=== PATIENT | male | born 1965 | race Caucasian/White ===

== ENCOUNTER 2020-11-01 01:51 | Emergency (ER) | payer OTHER, SELFPAY ==
[2020-11-01 02:04] VITALS: BP 166/80; PULSE 96; O2SAT 99
[2020-11-01 02:06] VITALS: BP 166/80; PULSE 96; RESP 17; TEMP 37.1; O2SAT 99; BMI 21.7
--- NOTE | 2020-11-01 02:09 | ED.EXTPRO ---
HPI - Extremity Problem General Chief complaint: Extremity Problem,Nontraumatic Stated complaint: redness/pain going up both legs Time Seen by Provider: 11/01/20 02:01 Source: patient Mode of arrival: Wheelchair Limitations: no limitations History of Present Illness HPI Narrative: 54-year-old gentleman with no reported medical history but does not frequent physicians presents with increasing lower extremity pain left greater than right getting worse over the course of the evening. Notes that he was mowing the lawn in his boot was rubbing on the medial aspect of his left calf became slightly red after that and over the course of the evening the redness has spread up the medial aspect of the knee to the posterior thigh. He describes no fevers, cough, chest pain, vomiting, diarrhea. No dizziness or near syncopal episodes no headache. He states he had some antibiotics and took 2 doses today. Does report intermittent use of both heroin and methamphetamine. Related Data Previous Rx's Medication Instructions Recorded clindamycin HCl 300 mg PO TID #30 cap 11/01/20 sulfamethoxazole-trimethoprim 1 tab PO BID #20 tab 11/01/20 [Bactrim DS] Allergies Allergy/AdvReac Type Severity Reaction Status Date / Time Penicillins Allergy Verified 11/01/20 02:08 Review of Systems Review of Systems Narrative: Remainder of complete review of systems is otherwise unremarkable except for that included in the HPI. Patient History Social History Smoking Status: Current every day smoker Smoking Status: Current every day smoker Substance Use Type: marijuana Exam Narrative Exam Narrative: General: Disheveled and in a moderate amount of pain from the left leg. Able to give a complete history. Well-nourished well-developed HEENT: Moist mucous membranes, normal sclera with reactive pupils, Respiratory: Lungs are clear to auscultation, no wheezing no rales no rhonchi. Full and symmetrical air movement Cardiac: Regular rate and rhythm, 2/6 systolic murmur with careful auscultation. No bruits Abdomen: Soft, nontender, good bowel tones, no flank pain. No inguinal adenopathy Skin: Left lower extremity with warmth and redness with a clearly demarcated edge in the medial aspect of the knee extending to the distal thigh on the left side. Mild edema to the left calf. He also has some mild erythema the distal oneal on the right side without similar calf swelling or proximal obvious demarcation of erythema Neurologic: Grossly neurologically intact with no obvious asymmetries or abnormalities Extremities: No trauma, well perfused Psych: Fluent speech, poor insight Initial Vital Signs Initial Vital Signs: Vital Signs Pulse Rate 96 H 11/01/20 02:04 Blood Pressure 166/80 H 11/01/20 02:04 Pulse Oximetry 99 11/01/20 02:04 Course Orders Ordered: ED Orders 11/01/20 02:45 Blood Culture Stat Complete Blood Count AUTO DIFF Stat Comprehensive Metabolic Panel Stat Lactate (Lactic Acid) Stat Discontinued Medications Clindamycin HCl (Clindamycin 150 Mg Capsule) 300 mg PO NOW ONE Stop: 11/01/20 03:20 Sodium Chloride (Normal Saline 0.9%) 1,000 mls @ 1,000 mls/hr IV BOLUS ONE Stop: 11/01/20 03:07 Last Admin: 11/01/20 03:08 Dose: 1,000 mls/hr Documented by: ARLIN Ceftriaxone Sodium/Dextrose (Rocephin) 2 gm in 50 mls @ 100 mls/hr IV NOW ONE Stop: 11/01/20 02:37 Last Admin: 11/01/20 03:08 Dose: 100 mls/hr Documented by: ARLIN Oxycodone/Acetaminophen (Oxycodone/Acetaminophen 5/325 Tablet) 2 tab PO NOW ONE Stop: 11/01/20 03:20 Trimethoprim/Sulfamethoxazole (Trimeth/Sulfa 160/800 (Ds) Tablet) 1 tab PO NOW ONE Stop: 11/01/20 03:20 Vital Signs Vital signs: Vital Signs - 8 hr 11/01/20 02:04 11/01/20 02:06 11/01/20 02:30 Temperature 98.8 F Pulse Rate 96 H 96 H 88 Respiratory Rate 17 Blood Pressure 166/80 H 166/80 H 128/67 Pulse Oximetry 99 99 97 MDM - Extremity (Nontraumatic) Lab Data Attestation: I reviewed the patient's lab results. Result diagrams: 11/01/20 02:45 11/01/20 02:45 Labs: Lab Results 11/01/20 11/01/20 11/01/20 Range/Units 02:45 02:45 02:45 WBC 10.1 (4.5-11.0) X10^3/uL RBC 4.28 L (4.5-5.9) X10^6/uL Hgb 13.0 L (13.5-17.5) g/dL Hct 37.7 L (41-53) % MCV 88.0 (80-100) fL MCH 30.4 (26-34) PG MCHC 34.6 (30-36) % RDW 13.5 (11.6-14.8) % Plt Count 227 (150-400) X10^3/uL Neut % (Auto) 65.2 (50-75) % Lymph % (Auto) 19.7 L (25-40) % [place] % (Auto) 12.3 (3-14) % Eos % (Auto) 2.2 (2-4) % Baso % (Auto) 0.6 (0-2) % Neut # (Auto) 6600 (4849-7389) /uL Lymph # (Auto) 2000 (2217-8900) /uL [place] # (Auto) 1200 H (0-900) /uL Eos # (Auto) 200 (0-450) /uL Baso # (Auto) 100 (0-100) /uL Sodium 134 L (137-145) mmol/L Potassium 3.7 (3.4-5.1) mmol/L Chloride 99 (98-107) mmol/L Carbon Dioxide 31 (22-32) mmol/L BUN 15 (9-20) mg/dL Creatinine 0.47 L (0.66-1.25) mg/dL Estimated GFR > 60.0 (>60) mL/min BUN/Creatinine Ratio 31.9 H (6-22) Glucose 178 H (70-100) mg/dL Lactate 1.1 (0.7-2.1) mmol/L Calcium 8.8 (8.4-10.2) mg/dL Total Bilirubin 0.7 (0.2-1.3) mg/dL AST 77 H (17-59) IU/L ALT 176 H (<50) IU/L Alkaline Phosphatase 85 (38-126) U/L Total Protein 7.0 (6.3-8.2) g/dL Albumin 3.3 L (3.5-5.0) g/dL Globulin 3.7 (1.7-4.1) g/dL Albumin/Globulin Ratio 0.9 L (1.0-2.8) Urine Dip Bedside Urine Glucose Negative Bedside Urine Bilirubin + 1 Bedside Urine Ketone +/- 5 Urine Specific [place] 1.030 Bedside Urine Occult Blood - Negative Bedside Urine pH 6.0 Bedside Urine Protein +/- 15 Bedside Urine Urobilinogen 2+ 4mg Bedside Urine Nitrite - Negative Bedside Urine Leukocytes +/- 15 Esterase MDM Narrative Medical decision making narrative: 54-year-old gentleman presents with left leg pain and cellulitis from the mid calf extending to the distal thigh. He declines a 2nd blood culture drawn. Initial IV line is arterial and he declines 2nd try for IV antibiotics. Lab work does return with mildly elevated transaminases and glucose suggesting probable hepatitis in likely diabetes. Creatinine is reassuring. He has no significant white blood cell elevation and his lactic acid is unremarkable. At this point, he has a lower extremity cellulitis without evidence of sepsis, abscess or DVT. As he is declining IV or IM antibiotics to start will opt to double cover him with both Bactrim and clindamycin with 1st dose is given today. Will talk to him about elevating the leg, using ibuprofen and Tylenol. He is given 2 Percocet for pain control here in the emergency department but I am reluctant to give additional narcotics knowing that he is still regularly using heroin. At this point he is safe for home discharge Discharge Plan Departure Patient Disposition: Home Clinical Impression: Cellulitis Qualifiers: Site of cellulitis: extremity Site of cellulitis of extremity: lower extremity Laterality: left Qualified Code(s): L03.116 - Cellulitis of left lower limb Instructions: DI for Cellulitis -- Adult Activity Restrictions/Additional Instructions: Thank you for coming in today Your developing skin infection on the inside of your calf extending up to the inside of the thigh. You do need a full 10 day course of antibiotics. You are high risk for MRSA so I am going to opt for 2 antibiotics to be used together. It is important that you take all of the medication to avoid resistance and increased difficulty in treating this if it does come back. Keeping the foot and leg elevated will help with pain control. Using 400 mg of ibuprofen (2 lvln-ihh-nvdayvy pills) and 1 Tylenol every 6 hours can be very helpful in controlling pain. If you find that your developing fevers, chills. You may have some increased redness up your leg over the next 24 hours but by Saturday it should be clearly improving. If it is not your need to return to the emergency department I hope you feel better Prescriptions: New sulfamethoxazole-trimethoprim [Bactrim DS] 800-160 mg tablet 1 tab PO BID Qty: 20 RF: 0 clindamycin HCl 300 mg capsule 300 mg PO TID Qty: 30 RF: 0
[2020-11-01 02:30] VITALS: BP 128/67; PULSE 88; O2SAT 97
--- NOTE | 2020-11-01 02:56 | PC.NURSE ---
Pt refused second draw for blood cultures. Provider aware and ok to start antibiotics.
[2020-11-01 03:00] LABS: Add Manual Diff / Slide Review NO; Basophils Absolute Auto 100 /uL (0-100); Basophils Percent Auto 0.6 % (0-2); Eosinophils Absolute Auto 200 /uL (0-450); Eosinophils Percent Auto 2.2 % (2-4); Hematocrit 37.7 % (41-53); Lymphocytes Absolute Auto 2000 /uL (1100-4500); Lymphocytes Percent Auto 19.7 % (25-40); Mean Corpuscular HGB Conc 34.6 % (30-36); Mean Corpuscular Hemoglobin 30.4 PG (26-34); Monocytes Absolute Auto 1200 /uL (0-900); Monocytes Percent Auto 12.3 % (3-14); Neutrophils Absolute Auto 6600 /uL (1500-7000); Neutrophils Percent Auto 65.2 % (50-75); Platelet Count 227 X10^3/uL (150-400); Red Blood Cell Count 4.28 X10^6/uL (4.5-5.9); Red Cell Distribution Width 13.5 % (11.6-14.8); White Blood Cell Count 10.1 X10^3/uL (4.5-11.0)
[2020-11-01 03:05] LABS: Alanine Aminotransferase 176 IU/L (<50); Albumin 3.3 g/dL (3.5-5.0); Albumin Globulin Ratio 0.9 (1.0-2.8); Alkaline Phosphatase 85 U/L (38-126); Aspartate Aminotransferase 77 IU/L (17-59); BUN Creatinine Ratio 31.9 (6-22); Bilirubin Total 0.7 mg/dL (0.2-1.3); Blood Urea Nitrogen 15 mg/dL (9-20); Calcium 8.8 mg/dL (8.4-10.2); Carbon Dioxide 31 mmol/L (22-32); Chloride 99 mmol/L (98-107); Estimated Glomerular Filt Rate > 60.0 mL/min (>60); Globulin 3.7 g/dL (1.7-4.1); Glucose 178 mg/dL (70-100); HEMOLYSIS < 15 (0-50); Lactate (Lactic Acid) 1.1 mmol/L (0.7-2.1); Potassium 3.7 mmol/L (3.4-5.1); Sodium 134 mmol/L (137-145)
--- NOTE | 2020-11-01 03:17 | PC.NURSE ---
IV was placed into an artery. removed before medications administered. Pt refuses for another IV to be started.
[2020-11-01] MEDS: CLINDAMYCIN 150 MG CAPSULE 300 MG PO (03:29)
[2020-11-01] MEDS: TRIMETH/SULFA 160/800 (DS) TABLET 1 TAB PO (03:29)
[2020-11-01] MEDS: OXYCODONE/ACETAMINOPHEN 5/325 TABLET 2 TAB PO (03:29)
== END 2020-11-01 03:51 | disposition home or self-care (01) ==
PROVIDERS: Emergency Provider Emergency Medicine
DX: L03.116 Cellulitis of left lower limb (principal)
CPT/HCPCS: 36415; 80053; 81003; 83605; 85025; 87040; 99283; J0696

== ENCOUNTER 2020-11-02 18:40 | Inpatient (IN) | payer OTHER, MEDICAID, SELFPAY ==
[2020-11-02 18:58] VITALS: BP 153/78; PULSE 80; RESP 16; TEMP 36.6; O2SAT 100; BMI 23.0
--- NOTE | 2020-11-02 18:59 | ED_ITS ---
HPI - General Adult General Chief complaint: Extremity Injury, Lower Stated complaint: left leg, red line running up inner thigh x6 days Time Seen by Provider: 11/02/20 18:56 Source: patient Mode of arrival: Ambulatory Limitations: no limitations History of Present Illness HPI narrative: Patient is a 54-year-old male who was seen in this emergency department approximately 36 hours ago for redness in his left lower extremity. He was diagnosed with cellulitis and sent home with a prescription for clindamycin and Bactrim. He states that he has been taking these medications as directed however over the past 12 hours he has noticed that the redness on his left leg has worsened and is now streaking up his inner thigh. He has no fevers. He does report tenderness to his left leg. He returned for further evaluation. Related Data Previous Rx's Medication Instructions Recorded clindamycin HCl 300 mg PO TID #30 cap 11/01/20 sulfamethoxazole-trimethoprim 1 tab PO BID #20 tab 11/01/20 [Bactrim DS] Allergies Allergy/AdvReac Type Severity Reaction Status Date / Time Penicillins Allergy Verified 11/01/20 02:08 Review of Systems Constitutional Constitutional: Denies fever(s) and Denies headache(s) ENT Ears, Nose, Mouth, and Throat: Denies headache(s) and Denies sore throat Cardiovascular Cardiovascular: Denies chest pain and Denies dyspnea Respiratory Respiratory: Denies dyspnea Gastrointestinal Gastrointestinal: Denies abdominal pain Musculoskeletal Musculoskeletal: Reports myalgias (Left calf muscle) Integumentary/Breasts Comments: Left lower extremity redness Neurologic Neurologic: Denies behavioral changes and Denies headache(s) Psychiatric Psychiatric: Denies behavioral changes Endocrine Endocrine: Reports system reviewed and no additional complaints, except as documented Hematologic/Lymphatic On Anticoagulants: No Allergic/Immunologic Allergic/Immunologic: Reports system reviewed and no additional complaints, except as documented Patient History Medical History Cellulitis of left lower leg Social History household members: significant other Smoking Status: Current every day smoker alcohol intake: former Smoking Status: Current every day smoker Substance Use Type: marijuana Exam Initial Vital Signs Initial Vital Signs: Vital Signs Temperature 97.9 F 11/02/20 18:58 Pulse Rate 80 11/02/20 18:58 Respiratory Rate 16 11/02/20 18:58 Blood Pressure 153/78 H 11/02/20 18:58 Pulse Oximetry 100 11/02/20 18:58 Const General: cooperative and No ill appearing Limitations: mental status not altered HENCT Head: normal to inspection and normocephalic Resp Effort & Inspection: normal respiratory effort Auscultation: clear to auscultation bilaterally Cardio Rate: regular rate Rhythm: regular rhythm Pulses: dorsalis pedis present on the left GI Inspection: non-distended Skin Other: Patient does have redness to the anterior oneal on the right however this area is not warm nor tender to palpation. He has a large area of redness on the anterior aspect of his left lower extremity with streaking redness that extends on the anterior aspect of his left leg proximal to the knee. Neuro General: patient alert and patient awake Extrem General: capillary refill normal Psych Appearance: disheveled Course Orders Ordered: ED Orders 11/02/20 19:00 periph venous low extrem lt Stat 11/02/20 19:15 Basic Metabolic Panel Stat Blood Culture Stat Complete Blood Count AUTO DIFF Stat Lactate (Lactic Acid) Stat 11/02/20 20:00 COVID19 - ADMIT (COIL TESTER swab/PCR) Stat Acetaminophen (Acetaminophen 325 Mg Tablet) 650 mg PO Q6HR PRN PRN Reason: Fever/Mild Pain (1-3) Al Hydrox/Mg Hydrox/Simethicone (Mag Hydrox/Alum/Simeth 30 Ml Udc) 30 ml PO Q6HR PRN PRN Reason: Dyspepsia Enoxaparin Sodium (Enoxaparin 40 Mg/0.4 Ml Syringe) 40 mg SUBCUT DAILY JAIRON Sodium Chloride (Normal Saline 0.9%) 1,000 mls @ 150 mls/hr IV CONT JAIRON Last Infusion: 11/02/20 21:42 Dose: 0 mls/hr Documented by: МАРИНА Admin: 11/02/20 19:52 Dose: 150 mls/hr Documented by: МАРИНА Lactated Ringer's (Lactated Ringers) 1,000 mls @ 100 mls/hr IV CONT JAIRON Last Admin: 11/02/20 22:13 Dose: 100 mls/hr Documented by: CHRYSTAL Ceftriaxone Sodium/Dextrose (Rocephin) 1 gm in 50 mls @ 100 mls/hr IV Q24H JAIRON Last Admin: 11/02/20 21:27 Dose: Not Given Documented by: МАРИНА Ketorolac Tromethamine (Ketorolac 30 Mg/Ml Vial) 30 mg IV Q6HR PRN PRN Reason: Pain, Severe (7-10) Stop: 11/07/20 21:08 Lorazepam (Lorazepam 2 Mg/Ml Inj) 0 mg IV CIWAPRN PRN; Protocol PRN Reason: Withdrawal symptoms Methadone HCl (Methadone 10 Mg Tablet) 10 mg PO BID [facility] Naloxone HCl (Naloxone 0.4 Mg/Ml Vial) 0.2 mg IV Q2MIN PRN PRN Reason: Opiate Reversal Ondansetron HCl (Ondansetron 4 Mg Odt) 4 mg PO Q8HR PRN PRN Reason: Nausea And Vomiting Ondansetron HCl (Ondansetron 4 Mg/2 Ml Inj) 4 mg IV Q4HR PRN PRN Reason: Nausea And Vomiting Discontinued Medications Vancomycin HCl (Vancomycin) 1,000 mg in 200 mls @ 200 mls/hr IV NOW ONE Stop: 11/02/20 19:58 Last Infusion: 11/02/20 21:41 Dose: 0 mls/hr Documented by: МАРИНА Admin: 11/02/20 20:24 Dose: 200 mls/hr Documented by: МАРИНА Ceftriaxone Sodium/Dextrose (Rocephin) 1 gm in 50 mls @ 100 mls/hr IV NOW ONE Stop: 11/02/20 19:29 Last Infusion: 11/02/20 20:11 Dose: 0 mls/hr Documented by: МАРИНА Admin: 11/02/20 19:51 Dose: 100 mls/hr Documented by: МАРИНА Vancomycin HCl (Vancomycin Per Pharmacy) 1 request MISC NOW ONE Stop: 11/02/20 21:11 Vital Signs Vital signs: Vital Signs - 8 hr 11/02/20 18:58 Temperature 97.9 F Pulse Rate 80 Respiratory Rate 16 Blood Pressure 153/78 H Pulse Oximetry 100 Medical Decision Making Lab Data Lab results reviewed: Yes I reviewed the patient's lab results. Result diagrams: 11/02/20 19:15 11/02/20 19:15 Labs: Lab Results 11/02/20 11/02/20 11/02/20 Range/Units 19:15 19:15 19:15 WBC 11.8 H (4.5-11.0) X10^3/uL RBC 4.38 L (4.5-5.9) X10^6/uL Hgb 12.9 L (13.5-17.5) g/dL Hct 39.3 L (41-53) % MCV 89.5 (80-100) fL MCH 29.4 (26-34) PG MCHC 32.8 (30-36) % RDW 13.7 (11.6-14.8) % Plt Count 246 (150-400) X10^3/uL Neut % (Auto) 63.1 (50-75) % Lymph % (Auto) 22.2 L (25-40) % [place] % (Auto) 12.2 (3-14) % Eos % (Auto) 2.1 (2-4) % Baso % (Auto) 0.4 (0-2) % Neut # (Auto) 7400 H (9662-5742) /uL Lymph # (Auto) 2600 (9970-4155) /uL [place] # (Auto) 1400 H (0-900) /uL Eos # (Auto) 200 (0-450) /uL Baso # (Auto) 100 (0-100) /uL Sodium 135 L (137-145) mmol/L Potassium 3.9 (3.4-5.1) mmol/L Chloride 100 (98-107) mmol/L Carbon Dioxide 28 (22-32) mmol/L BUN 18 (9-20) mg/dL Creatinine 0.58 L (0.66-1.25) mg/dL Estimated GFR > 60.0 (>60) mL/min BUN/Creatinine Ratio 31.0 H (6-22) Glucose 87 (70-100) mg/dL Lactate 1.5 (0.7-2.1) mmol/L Calcium 9.5 (8.4-10.2) mg/dL Magnesium (1.6-2.3) mg/dL C-Reactive Protein (<1.0) mg/dL SARS-CoV-2 (PCR) (Negative) 11/02/20 11/02/20 11/02/20 Range/Units 19:15 19:15 20:00 WBC (4.5-11.0) X10^3/uL RBC (4.5-5.9) X10^6/uL Hgb (13.5-17.5) g/dL Hct (41-53) % MCV (80-100) fL MCH (26-34) PG MCHC (30-36) % RDW (11.6-14.8) % Plt Count (150-400) X10^3/uL Neut % (Auto) (50-75) % Lymph % (Auto) (25-40) % [place] % (Auto) (3-14) % Eos % (Auto) (2-4) % Baso % (Auto) (0-2) % Neut # (Auto) (5804-5319) /uL Lymph # (Auto) (2546-4371) /uL [place] # (Auto) (0-900) /uL Eos # (Auto) (0-450) /uL Baso # (Auto) (0-100) /uL Sodium (137-145) mmol/L Potassium (3.4-5.1) mmol/L Chloride (98-107) mmol/L Carbon Dioxide (22-32) mmol/L BUN (9-20) mg/dL Creatinine (0.66-1.25) mg/dL Estimated GFR (>60) mL/min BUN/Creatinine Ratio (6-22) Glucose (70-100) mg/dL Lactate (0.7-2.1) mmol/L Calcium (8.4-10.2) mg/dL Magnesium 1.7 (1.6-2.3) mg/dL C-Reactive Protein 2.6 H (<1.0) mg/dL SARS-CoV-2 (PCR) Negative (Negative) Imaging Data US - DVT: Radiologist's Impression: [address] [id number] ReportSigned Patient: Constantin Rosario PMR#: [id number]: 1965Acct:[id number]/Sex: 54 / MDate of Service: 11/02/20Loc: [id number] Number: [id number] Procedure: US periph venous low extrem lt Ordering Provider: Dell Prasad D.O. PROCEDURE: US PERIPH VENOUS LOW EXTREM LT INDICATIONS: ?DEEP VEIN THROMBOSIS TECHNIQUE: Real-time imaging, as well as color and pulse Doppler interrogation, were performed of the lower extremity deep veins from the inguinal ligament to the popliteal fossa. COMPARISON: None. FINDINGS: The common femoral, femoral and popliteal veins are normally compressible, and free of intraluminal thrombus. Color and pulse Doppler demonstrate normal phasic intraluminal flow. There is normal augmentation response to distal compression maneuver. There is a lymph node in the left groin measuring 1.8 x 1.0 x 0.7 centimeters IMPRESSION: 1. No DVT in the left lower extremity. 2. Enlarged lymph node in the left groin likely reactive. Dictated by: Vasquez Bhagat M.D. on 11/02/2020 at 20:41 Approved by: Vasquez Bhagat M.D. on 11/02/2020 at 20:42 [facility] Narrative Medical decision making narrative: Patient is not septic appearing however he does have a significant area of redness of his left lower extremity that now high streaking going up the medial aspect of his left leg proximal to the knee. He is afebrile. Not tachycardic. Has been on oral antibiotics for the past 24 hours without any improvement and actually is having worsening of his symptoms. Ultrasound shows no signs of DVT. Blood cultures were ordered. Patient given antibiotics. He has failed outpatient treatment so will need admission to the hospital for IV antibiotics. I did discuss this with the patient he expressed understanding and agreement. I then discussed the case with MAY Espinoza the [facility] provider who will admit for further evaluation and treatment. Discharge Plan Departure Patient Disposition: Admitted As Inpatient Clinical Impression: Cellulitis Admit Date/Time: 11/02/20 20:16 Admit Provider: Heydi Espinoza
--- NOTE | 2020-11-02 19:36 | PC.NURSE ---
pt refused lab to try for 2nd blood culture.
[2020-11-02 19:42] LABS: Add Manual Diff / Slide Review NO; Basophils Absolute Auto 100 /uL (0-100); Basophils Percent Auto 0.4 % (0-2); Eosinophils Absolute Auto 200 /uL (0-450); Eosinophils Percent Auto 2.1 % (2-4); Hematocrit 39.3 % (41-53); Hemoglobin 12.9 g/dL (13.5-17.5); Lymphocytes Absolute Auto 2600 /uL (1100-4500); Lymphocytes Percent Auto 22.2 % (25-40); Mean Corpuscular HGB Conc 32.8 % (30-36); Mean Corpuscular Hemoglobin 29.4 PG (26-34); Mean Corpuscular Volume 89.5 fL (80-100); Monocytes Absolute Auto 1400 /uL (0-900); Monocytes Percent Auto 12.2 % (3-14); Neutrophils Absolute Auto 7400 /uL (1500-7000); Neutrophils Percent Auto 63.1 % (50-75); Platelet Count 246 X10^3/uL (150-400); Red Blood Cell Count 4.38 X10^6/uL (4.5-5.9); Red Cell Distribution Width 13.7 % (11.6-14.8); White Blood Cell Count 11.8 X10^3/uL (4.5-11.0)
[2020-11-02 19:50] LABS: Blood Urea Nitrogen 18 mg/dL (9-20); Calcium 9.5 mg/dL (8.4-10.2); Carbon Dioxide 28 mmol/L (22-32); Chloride 100 mmol/L (98-107); Estimated Glomerular Filt Rate > 60.0 mL/min (>60); Glucose 87 mg/dL (70-100); HEMOLYSIS 19 (0-50); Lactate (Lactic Acid) 1.5 mmol/L (0.7-2.1); Potassium 3.9 mmol/L (3.4-5.1); Sodium 135 mmol/L (137-145)
[2020-11-02] MEDS: CEFTRIAXONE 1 GM/50 ML FROZ.PIGGY IV (19:51)
[2020-11-02] MEDS: SODIUM CHLORIDE 0.9% 1,000 ML 150 ML IV (19:52)
[2020-11-02] MEDS: VANCOMYCIN 1,000 MG/200 ML PIGGYBACK 200 MG IV (20:24)
[2020-11-02 21:37] LABS: Magnesium 1.7 mg/dL (1.6-2.3)
[2020-11-02 21:39] LABS: C-Reactive Protein Quant 2.6 mg/dL (<1.0)
[2020-11-02 21:53] VITALS: BP 132/78; PULSE 70; RESP 18; O2SAT 99
[2020-11-02 22:00] LABS: COVID19 - ADMIT (NP swab/PCR) Negative (Negative)
[2020-11-02] MEDS: LACTATED RINGERS 1,000 ML 100 ML IV (22:13)
[2020-11-02 22:16] VITALS: O2SAT 100
[2020-11-02 22:17] VITALS: BP 145/74; PULSE 62; RESP 17; TEMP 35.7
[2020-11-02 22:24] VITALS: BMI 23.6
--- NOTE | 2020-11-02 22:39 | PC.NURSE ---
2200 admitted to 226 per WC from ED. Admission assessment completed, IV LR in progress to RFA IV @ 100ml/hr Oriented to environment and instructed to call for help when getting up to BR. Pt calm and cooperative.
--- NOTE | 2020-11-02 23:02 | P.HP_ITS ---
History of Present Illness History of Present Illness Date Patient Seen: 11/02/20 Time Patient Seen: 21:02 Chief complaint: left leg, red line running up inner thigh x6 days Narrative: Patient is a 54-year-old male Constantin Rosario who presented to the ED with complaints of left leg, red line running up inner thigh x6 days. Patient reports that he noticed increased swelling and redness to bilateral legs and bilateral upper arms for about 5-6 days this a.m. the pain in his legs and the red streaking going up his inner left thigh alarmed him and brought him in for treatment in the ED. patient reports that he injects heroin 2 times daily for approximately 6 years and that he often experiences withdrawals early in the morning. 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 Patient's lower left leg is is greatest site of pain and sensitive to even the slightest touch. He denies chest pain, shortness of breath, nausea, vomiting, diarrhea, chills, body aches, or dysuria. He states that he never uses a dirty needle. Patient denies any medical history. He stated that he was diagnosed with diabetes when he was in [place] [facility] in [facility] but he has had a 70 lb weight loss since that time and that the diabetes resolved. Patient states that he takes no medications and is only other surgery was for a right knee arthroscopic. Patient states that he smokes out of a pack a day of cigarettes for 40 years has not had a drink in 15 years has a history of math but has not used in several years. Patient's vital signs upon admit temp 97.9?, BP 153/78, HR 80, RR 16, 100% O2 saturation on rm air. Labs WBC 11.8 with a left shift newt# [id number], HGB 12.9, HCT 39.3, sodium 135, creatinine 0.58, RBC 4.38, lactate is negative. Lower leg ultrasound:No DVT in the left lower extremity. Enlarged lymph node in the left groin likely reactive. 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 Prior Living Arrangements House Safety & Behavioral: Feels Safe in Current Yes Environment Been Physically Hurt or No Threatened By a Person Suicidal Ideation Description None Suicide Plan Description No Plan Tobacco & Substance use: Smoking Status Current every day smoker 1/2ppd x 40 yrs alcohol intake former quit 15 yrs ago Substance Use Type marijuana,heroin injects BIDx 6 yrs Meds Home Medications and Allergies Home Medications Medication Instructions Recorded Confirmed Type clindamycin HCl 300 mg PO TID #30 cap 11/01/20 Rx sulfamethoxazole-trimethoprim 1 tab PO BID #20 tab 11/01/20 Rx [Bactrim DS] Allergies Allergy/AdvReac Type Severity Reaction Status Date / Time Penicillins Allergy Verified 11/01/20 02:08 Review of Systems Review of Systems ROS: Yes All systems reviewed with the patient and are negative except as otherwise documented Musculoskeletal Musculoskeletal: Reports limited range of motion and Reports radiating pain into limb Integumentary/Breasts Skin/Breast: Reports erythema, Reports skin pain and Reports skin swelling Exam Vital Signs (past 8 hours): - 11/02/20 18:58 11/02/20 21:53 11/02/20 22:16 Temperature 97.9 F Pulse Rate 80 70 Respiratory Rate 16 18 Blood Pressure 153/78 H 132/78 Pulse Oximetry 100 99 100 11/02/20 22:17 Temperature 96.3 F L Pulse Rate 62 Respiratory Rate 17 Blood Pressure 145/74 H Pulse Oximetry Oxygen Delivery Method Room Air Oxygen Flow Rate 100 Narrative Exam Narrative: General: Patient is a well-developed, modestly-nourished, disheveled, in no distress at this time. HEENT: Normocephalic, atraumatic, extraocular muscles intact, oral pharynx is clear and mucous membranes are moist. Poor dentition, with multiple dental caries. Neck is supple and symmetric, trachea is midline, no adenopathy, no thyroid enlargement, nontender, no masses palpated. Negative for JVD Chest: Normal AP diameter and contour without kyphoscoliosis, no nasal flaring, retractions, or tachypneic labored Lungs: Auscultation of all lung herron are clear without adventitious sounds, wheezes, rhonchi, or rales. with the exception right lobe occ exp wheezing. Cardio: S1 & S2 with regular rate and rhythm without murmur, rubs, or gallops, no carotid bruit, no cardiac pulsations present. Abdomen: Soft nontender, negative for organomegaly, or masses. Bowel sounds are present in all 4 quadrants without guarding or rebound, no CVA tenderness. Musculoskeletal: Muscle strength and tone are equal within normal limits. Full range of motion intact radial and pedal pulses are normal. Skin: Patient's right leg with noted inflammation, erythematous anterior mid calf area, cool to touch, painful with palpation. Patient has noted erythema inflammation on the left to just above the knee with erythematous red streaking up the medial thigh, extremely sensitive to touch, warm to touch, pain is greater on the left than the right. Patient also has bilateral upper arm anterior erythema inflammation and firm hard raise areas present where he injects in his arms less painful than his legs. Neuro: Alert and orientated x3, strength is +5/5 in all extremities, sensation to touch intact, no gross deficits noted of cranial nerves. Psych: Patient has a poorly-kept appearance, appropriate affect, mental status attitude thought context and judgment are appropriate for age. Objective Labs Result Diagrams: 11/02/20 19:15 11/02/20 19:15 Labs: Laboratory Results - last 24 hr 11/02/20 11/02/20 11/02/20 19:15 19:15 19:15 WBC 11.8 H RBC 4.38 L Hgb 12.9 L Hct 39.3 L MCV 89.5 MCH 29.4 MCHC 32.8 RDW 13.7 Plt Count 246 Neut % (Auto) 63.1 Lymph % (Auto) 22.2 L [place] % (Auto) 12.2 Eos % (Auto) 2.1 Baso % (Auto) 0.4 Neut # (Auto) 7400 H Lymph # (Auto) 2600 [place] # (Auto) 1400 H Eos # (Auto) 200 Baso # (Auto) 100 Sodium 135 L Potassium 3.9 Chloride 100 Carbon Dioxide 28 BUN 18 Creatinine 0.58 L Estimated GFR > 60.0 BUN/Creatinine Ratio 31.0 H Glucose 87 Lactate 1.5 Calcium 9.5 Magnesium C-Reactive Protein SARS-CoV-2 (PCR) 11/02/20 11/02/20 11/02/20 19:15 19:15 20:00 WBC RBC Hgb Hct MCV MCH MCHC RDW Plt Count Neut % (Auto) Lymph % (Auto) [place] % (Auto) Eos % (Auto) Baso % (Auto) Neut # (Auto) Lymph # (Auto) [place] # (Auto) Eos # (Auto) Baso # (Auto) Sodium Potassium Chloride Carbon Dioxide BUN Creatinine Estimated GFR BUN/Creatinine Ratio Glucose Lactate Calcium Magnesium 1.7 C-Reactive Protein 2.6 H SARS-CoV-2 (PCR) Negative Assessment & Plan Assessment & Plan narrative: Patient's expected length of stay greater than 2 midnights. Patient is under inpatient status due to severity of presenting symptoms, complexity treatment and plan and risks of adverse events. 1.Cellulitis Bilateral lower legs, (greater on left over right) (bilateral upper arms), acute, nonpurulent, present on admission as a result of heroin use the IV drug use, acute on chronic, present on admission -rule out osteomyelitis, gas gangrene necrotizing fasciitis. Determine if infection is staph or not/MRSA-blood cultures pending. -I suspect that these are a direct of reaction to infection induced via heroin injections. Discussed with patient improved hygiene protocols for injecting including gloves cleaning the skin and clean needles. -patient admitted on tele, of PICC line placed due to patient having poor IV access. -patient placed on COWS protocol for opiate withdrawal management, ordered methadone 10 mg p.o. b.i.d. starting tomorrow, with Ativan as needed per protocol. -monitor and manage patient's withdrawal symptoms. -ordered hepatitis panel and HIV, blood cultures ordered in ED -ESR and CRP to help rule out osteomyelitis, if suspicion is high for osteomyelitis order x-ray then on MRI. -elevate affected leg, lower leg ultrasound negative for DVT-may consider CT with contrast to rule out abscess or deep infection. -monitor for hyponatremia elevated CPK or AST -wells criteria score:0 , Sofa score: 0 -patient for observation, vital signs q.4 hours, intake and output monitored Q shift, weight measure daily, diet: Regular, IV fluids: LR at 100 cc/hour. -ceftriaxone 1 g Q 24 hours, monitor patient has a penicillin allergy watch for cross reaction -daily labs ordered CBC, CMP, PT INR. Procalcitonin Qam Code status: Full code COVID PCR: Negative Designated surrogate decision maker: Ex- Jacquelyn Rosario DVT/VTE prophylaxis: Lovenox 40 mg -No SCD's Scores GCS [place] coma scale eye opening: Spontaneous [place] coma scale verbal response: Orientated [place] coma scale motor response: Obey commands [place] coma scale total score: 15 SOFA PaO2/FIO2: >=400 mmHg Platelets: >= 150 Bilirubin: < 1.2 mg/dL Hypotension: MAP >= 70 mmHg [place] Coma Scale: 15 Renal: < 1.2 mg/dL SOFA Score: 0 Wells' Criteria for PE Clinical signs and symptoms of DVT: No PE is #1 Dx or equally likely: No Heart rate > 100: No Immobilization at least 3 days or surg in previous 4 weeks: No History of PE or DVT: No Hemoptysis: No Malignancy w/Treatment within 6 months or palliative: No Wells' PE Score total: 0 Quality VTE Deep Vein Thrombosis/Pulmonary Embolism Present on Admission: No
[2020-11-02 23:51] VITALS: BP 128/69; PULSE 62; RESP 18; TEMP 36.2; O2SAT 100
[2020-11-03] VITALS (14 sets, daily range): BP systolic 136–160; BP diastolic 69–78; PULSE 58–97; RESP 16–20; TEMP 36.1–37.3; O2SAT 98–100
[2020-11-03 00:09] LABS: D Dimer 477 ng/mL (<230)
[2020-11-03 00:39] LABS: Erythrocyte Sedimentation Rate 24 MM/HR (0-15)
[2020-11-03] MEDS: KETOROLAC 30 MG/ML VIAL IV (03:59)
[2020-11-03 05:24] LABS: Add Manual Diff / Slide Review NO; Basophils Absolute Auto 100 /uL (0-100); Basophils Percent Auto 0.7 % (0-2); Eosinophils Absolute Auto 300 /uL (0-450); Eosinophils Percent Auto 3.8 % (2-4); Lymphocytes Absolute Auto 1900 /uL (1100-4500); Lymphocytes Percent Auto 22.8 % (25-40); Mean Corpuscular HGB Conc 33.3 % (30-36); Mean Corpuscular Hemoglobin 29.5 PG (26-34); Mean Corpuscular Volume 88.5 fL (80-100); Monocytes Absolute Auto 1300 /uL (0-900); Monocytes Percent Auto 15.4 % (3-14); Neutrophils Absolute Auto 4800 /uL (1500-7000); Neutrophils Percent Auto 57.3 % (50-75); Platelet Count 229 X10^3/uL (150-400); Red Blood Cell Count 4.07 X10^6/uL (4.5-5.9); Red Cell Distribution Width 13.6 % (11.6-14.8); White Blood Cell Count 8.3 X10^3/uL (4.5-11.0)
[2020-11-03 05:27] LABS: INR 1.2 (0.9-1.3); Prothrombin Time 13.7 SECONDS (10.1-12.7)
[2020-11-03 05:33] LABS: BUN Creatinine Ratio 27.5 (6-22); Blood Urea Nitrogen 14 mg/dL (9-20); Calcium 9.1 mg/dL (8.4-10.2); Carbon Dioxide 31 mmol/L (22-32); Chloride 100 mmol/L (98-107); Estimated Glomerular Filt Rate > 60.0 mL/min (>60); Glucose 105 mg/dL (70-100); HEMOLYSIS < 15 (0-50); Potassium 3.8 mmol/L (3.4-5.1); Sodium 135 mmol/L (137-145)
[2020-11-03 05:48] LABS: Procalcitonin 0.07 ng/mL (<0.5)
--- NOTE | 2020-11-03 07:28 | PM.PN.1 ---
Subjective Subjective Date Patient Seen: 11/03/20 Interval history: He is seen is room today to follow-up his IV heroin use and left leg cellulitis. His INR is 1.2 with a normal CBC and BMP. The CRP is 2.6 and the D-dimer was 477. He has received methadone 10 mg this morning and when I see him is unable to wake up. He is breathing comfortably and is not hypoxic. He had previously stated that he did not want to try Suboxone which makes me suspicious that he has tried it in the past. He has been on a routine twice a day heroin habit. Exam Vital Signs (past 8 hours): - 11/02/20 23:51 11/03/20 03:59 11/03/20 06:00 Temperature 97.2 F L 97.9 F Pulse Rate 62 58 L Respiratory Rate 18 18 Blood Pressure 128/69 159/70 H Pulse Oximetry 100 100 100 Oxygen Delivery Method Room Air Oxygen Flow Rate 0 Narrative Exam Narrative: He is sleeping soundly, does not follow exam directions, is breathing steadily and cannot be awoken during my visit. He had just received methadone. Heart is regular rate and rhythm without murmur Lungs are clear to auscultation bilaterally Extremities have no ankle edema. There is significant left calf redness which is within the borders drawn last night. The right ankle has some pinkness but is not red. There is no obvious tenderness or warmth. Objective Labs Result Diagrams: 11/03/20 05:00 11/03/20 05:00 Labs: Laboratory Results - last 24 hr 11/02/20 11/02/20 11/02/20 19:15 19:15 19:15 WBC 11.8 H RBC 4.38 L Hgb 12.9 L Hct 39.3 L MCV 89.5 MCH 29.4 MCHC 32.8 RDW 13.7 Plt Count 246 Neut % (Auto) 63.1 Lymph % (Auto) 22.2 L [place] % (Auto) 12.2 Eos % (Auto) 2.1 Baso % (Auto) 0.4 Neut # (Auto) 7400 H Lymph # (Auto) 2600 [place] # (Auto) 1400 H Eos # (Auto) 200 Baso # (Auto) 100 ESR PT INR D-Dimer Sodium 135 L Potassium 3.9 Chloride 100 Carbon Dioxide 28 BUN 18 Creatinine 0.58 L Estimated GFR > 60.0 BUN/Creatinine Ratio 31.0 H Glucose 87 Lactate 1.5 Calcium 9.5 Magnesium C-Reactive Protein Procalcitonin Nasal Screen MRSA (PCR) SARS-CoV-2 (PCR) 11/02/20 11/02/20 11/02/20 19:15 19:15 20:00 WBC RBC Hgb Hct MCV MCH MCHC RDW Plt Count Neut % (Auto) Lymph % (Auto) [place] % (Auto) Eos % (Auto) Baso % (Auto) Neut # (Auto) Lymph # (Auto) [place] # (Auto) Eos # (Auto) Baso # (Auto) ESR PT INR D-Dimer Sodium Potassium Chloride Carbon Dioxide BUN Creatinine Estimated GFR BUN/Creatinine Ratio Glucose Lactate Calcium Magnesium 1.7 C-Reactive Protein 2.6 H Procalcitonin Nasal Screen MRSA (PCR) SARS-CoV-2 (PCR) Negative 11/02/20 11/02/20 11/02/20 22:00 22:53 22:53 WBC RBC Hgb Hct MCV MCH MCHC RDW Plt Count Neut % (Auto) Lymph % (Auto) [place] % (Auto) Eos % (Auto) Baso % (Auto) Neut # (Auto) Lymph # (Auto) [place] # (Auto) Eos # (Auto) Baso # (Auto) ESR 24 H PT INR D-Dimer 477 H Sodium Potassium Chloride Carbon Dioxide BUN Creatinine Estimated GFR BUN/Creatinine Ratio Glucose Lactate Calcium Magnesium C-Reactive Protein Procalcitonin Nasal Screen MRSA (PCR) Negative for mrsa SARS-CoV-2 (PCR) 11/03/20 11/03/20 11/03/20 05:00 05:00 05:00 WBC 8.3 RBC 4.07 L Hgb 12.0 L Hct 36.0 L MCV 88.5 MCH 29.5 MCHC 33.3 RDW 13.6 Plt Count 229 Neut % (Auto) 57.3 Lymph % (Auto) 22.8 L [place] % (Auto) 15.4 H Eos % (Auto) 3.8 Baso % (Auto) 0.7 Neut # (Auto) 4800 Lymph # (Auto) 1900 [place] # (Auto) 1300 H Eos # (Auto) 300 Baso # (Auto) 100 ESR PT 13.7 H INR 1.2 D-Dimer Sodium 135 L Potassium 3.8 Chloride 100 Carbon Dioxide 31 BUN 14 Creatinine 0.51 L Estimated GFR > 60.0 BUN/Creatinine Ratio 27.5 H Glucose 105 H Lactate Calcium 9.1 Magnesium C-Reactive Protein Procalcitonin 0.07 Nasal Screen MRSA (PCR) SARS-CoV-2 (PCR) PFSH Medical History Cellulitis and abscess of upper extremity Cellulitis of left lower leg Heroin use disorder, mild, abuse History of methamphetamine abuse IVDU (intravenous drug user) Surgical History (Updated 11/03/20 @ 03:26 by DONTRELL OliveraJACKELIN) History of right knee surgery Family History (Updated 11/03/20 @ 03:27 by DONRTELL Olivera-JACKELIN) Mother ALS (amyotrophic lateral sclerosis) Father Alzheimer's dementia Social History household members: significant other Smoking Status: Current every day smoker alcohol intake: former Assessment & Plan Assessment & Plan narrative: 1.Cellulitis Bilateral lower legs, (greater on left over right) (bilateral upper arms), acute, nonpurulent, present on admission as a result of heroin use -clinical appearance suggests strep instead of staph. - PICC line placed due to patient having poor IV access. -patient placed on COWS protocol for opiate withdrawal management, ordered methadone 10 mg p.o. b.i.d. which seemed to produce over-sedation so was decreased to 5 mg on 11/03. -monitor and manage patient's withdrawal symptoms. -ordered hepatitis panel and HIV, blood cultures ordered in ED -elevate affected leg, lower leg ultrasound negative for DVT-may consider CT with contrast to rule out abscess or deep infection. -continue ceftriaxone and add vancomycin. Blood cultures pending. -daily labs ordered CBC, CMP. 2. IV Heroin use -anticipate withdrawal and treat with methadone 5 mg b.i.d. Code status: Full code COVID PCR: Negative Designated surrogate decision maker: Ex- Jacquelyn Rosario DVT/VTE prophylaxis: Lovenox 40 mg -No SCD's Quality VTE Deep Vein Thrombosis/Pulmonary Embolism Present on Admission: No
[2020-11-03] MEDS: LORazepam 2 MG/ML INJ IV ×4 (07:35→20:09)
[2020-11-03] MEDS: METHADONE 10 MG TABLET PO (10:02)
[2020-11-03] MEDS: ENOXAPARIN 40 MG/0.4 ML SYRINGE SUBCUT (10:02)
--- NOTE | 2020-11-03 10:30 | PT-IP ANOTE ---
Attempted Physical therapy evaluation. Pt got in/out of bed on his own to urinate. He returned to bed and immediately fell asleep. Unable to assess if he needs an assistive device for gait to manage his LE pain. Will follow-up later today if pt is able to stay alert.
[2020-11-03] MEDS: ONDANSETRON 4 MG/2 ML INJ IV ×2 (11:26→16:34)
[2020-11-03] MEDS: VANCOMYCIN 1,500 MG/300 ML PIGGYBACK 200 MG IV (14:45)
--- NOTE | 2020-11-03 15:33 | PC.NURSE ---
Day shift note: Patient sleeping between care, CIWA 12 and 11, Ativan IV given per protocol, 30 minutes post assessment CIWA 3. Emesis x 1, Zofran IV admin with adequate response. Up OOB to use urinal. Inconsistent with call light, bed alarm active, call light within reach.
--- NOTE | 2020-11-03 16:09 | CM.DANOTE ---
Addendum entered by Thais Gonzalez 11/04/20 13:12: Received notification from provider this AM that patient will be off of IV abx today. Therefore, patient will be medically cleared for discharge. Provider reports that patient is not interested in SPEECH LANGUAGE PATHOLOGIST evaluation or any resources for substance abuse. SPEECH LANGUAGE PATHOLOGIST briefly met with patient explained role. Patient sitting in chair and mumbling answers to questions. Patient does not make eye contact. Patient reports that he is looking for ride? RN updated and SPEECH LANGUAGE PATHOLOGIST requested she let CM team know if ride needed. P: Home? Patient refusing any community services and assessment. Provider reports that he did speak with patient this AM and he is alert and oriented. KJS Original Note: DCP/Brief assessment: Reviewed chart. Patient admitted to [facility].. with left leg cellulitis related to IV heroin use? No PCP listed. Primary payor is 1)Medicaid. SPEECH LANGUAGE PATHOLOGIST attempted to meet with patient today. Patient given methadone this AM and very groggy at time of visit. Per notes patient with history of IVDU? Patient currently being treated with IV Abx. PICC line placed. Patient unable to have outpatient therapy given his IVDU. SPEECH LANGUAGE PATHOLOGIST will reattempt visit tomorrow 11-04-20. Patient expected to remain hospitalized to complete abx course. Per provider he will need 5 days of therapy. P: Pending. SINGH Silverman Discharge Planning/Care Management Advanced directive, confirm from FAMILY Start: 11/02/20 22:32 Freq: Q24H Status: Active Protocol: Document 11/02/20 22:32 KA (Rec: 11/02/20 22:33 KA [id number]) Advance Directive, confirm on record Time 22:33 Person contacted Constantin Copy received No CM Discharge Assessment Start: 11/03/20 16:07 Freq: Status: Active Protocol: Document 11/03/20 16:07 LAMBERTS (Rec: 11/03/20 16:09 KJS [id number]) Discharge Planning Assessment Assigned Risk Compliance Manager SINGH Silverman Contact Information Emma Ferrara (significant other listed) # [phone] Advance Directives? No History Provided By Patient,Medical Record Prior Living Arrangements House Household Members significant other Comment Unable to interview today due to sleepiness i.e. methadone? Independent with ADL's Yes: Anticipated Is patient alert and oriented? No Comment Pending, provider reports that patient will need IV abx for 5dys. Discharge Plan Home Transportation Arrangement TBD Review Status In Process Next Review Type Continued Stay Review
[2020-11-03] MEDS: SODIUM CHLORIDE 0.9% 1,000 ML 150 ML IV (19:48)
[2020-11-03] MEDS: LACTATED RINGERS 1,000 ML 100 ML IV (19:49)
[2020-11-03] MEDS: METHADONE 5 MG TABLET PO (20:09)
[2020-11-03] MEDS: CEFTRIAXONE 1 GM/50 ML FROZ.PIGGY IV (20:12)
[2020-11-03] MEDS: VANCOMYCIN 1,250 MG/250 ML PIGGYBACK 250 MG IV (22:17)
[2020-11-04] MEDS: KETOROLAC 30 MG/ML VIAL IV (00:20)
[2020-11-04] MEDS: LORazepam 2 MG/ML INJ IV ×3 (00:20→05:48)
[2020-11-04 01:09] VITALS: PULSE 84; RESP 14
[2020-11-04 02:28] VITALS: PULSE 86; RESP 14
[2020-11-04] MEDS: NICOTINE 14 PATCH 14 MG TOP (02:28)
[2020-11-04 03:01] VITALS: BP 155/69; PULSE 86; RESP 20; TEMP 36.7; O2SAT 98
[2020-11-04 03:32] VITALS: O2SAT 98
--- NOTE | 2020-11-04 03:33 | PC.NURSE ---
Shift Note-Patient has been confused and impulsive, CIWA 8-11, medicated with IV Ativan per protocol, see Emar. Nicotine patch also placed, speech is mumbled but he clearly states his need for a cigarette. Setting bed alarm off frequently with needing to use urinal, curtain open, patient is in continuous obs of staff.
[2020-11-04 04:35] LABS: Add Manual Diff / Slide Review NO; Basophils Absolute Auto 200 /uL (0-100); Basophils Percent Auto 1.4 % (0-2); Eosinophils Absolute Auto 200 /uL (0-450); Eosinophils Percent Auto 1.5 % (2-4); Hematocrit 36.2 % (41-53); Hemoglobin 12.4 g/dL (13.5-17.5); Lymphocytes Absolute Auto 1900 /uL (1100-4500); Lymphocytes Percent Auto 16.4 % (25-40); Mean Corpuscular HGB Conc 34.2 % (30-36); Mean Corpuscular Hemoglobin 29.9 PG (26-34); Mean Corpuscular Volume 87.4 fL (80-100); Monocytes Absolute Auto 1200 /uL (0-900); Monocytes Percent Auto 10.2 % (3-14); Neutrophils Absolute Auto 8300 /uL (1500-7000); Neutrophils Percent Auto 70.5 % (50-75); Platelet Count 248 X10^3/uL (150-400); Red Blood Cell Count 4.15 X10^6/uL (4.5-5.9); Red Cell Distribution Width 13.5 % (11.6-14.8); White Blood Cell Count 11.7 X10^3/uL (4.5-11.0)
[2020-11-04 04:54] LABS: BUN Creatinine Ratio 29.1 (6-22); Blood Urea Nitrogen 16 mg/dL (9-20); Calcium 8.8 mg/dL (8.4-10.2); Carbon Dioxide 27 mmol/L (22-32); Chloride 103 mmol/L (98-107); Estimated Glomerular Filt Rate > 60.0 mL/min (>60); Glucose 114 mg/dL (70-100); HEMOLYSIS < 15 (0-50); Potassium 3.5 mmol/L (3.4-5.1); Sodium 134 mmol/L (137-145)
[2020-11-04] MEDS: VANCOMYCIN 1,250 MG/250 ML PIGGYBACK 250 MG IV (05:49)
[2020-11-04 06:09] VITALS: PULSE 62; RESP 15
[2020-11-04] MEDS: LACTATED RINGERS 1,000 ML 100 ML IV (06:44)
[2020-11-04] MEDS: ENOXAPARIN 40 MG/0.4 ML SYRINGE SUBCUT (08:20)
[2020-11-04] MEDS: METHADONE 5 MG TABLET PO (08:20)
[2020-11-04 08:35] VITALS: BP 156/97; PULSE 81; RESP 20; TEMP 36.4; O2SAT 100
--- NOTE | 2020-11-04 11:30 | PM.DS.1 ---
History of Present Illness History of Present Illness Date Patient Seen: 11/04/20 Time Patient Seen: 11:30 Chief complaint: left leg, red line running up inner thigh x6 days Narrative: Per DONTRELL Olivera-: Patient is a 54-year-old male Constantin Rosario who presented to the ED with complaints of left leg, red line running up inner thigh x6 days. Patient reports that he noticed increased swelling and redness to bilateral legs and bilateral upper arms for about 5-6 days this a.m. the pain in his legs and the red streaking going up his inner left thigh alarmed him and brought him in for treatment in the ED. patient reports that he injects heroin 2 times daily for approximately 6 years and that he often experiences withdrawals early in the morning. 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 Patient's lower left leg is is greatest site of pain and sensitive to even the slightest touch. He denies chest pain, shortness of breath, nausea, vomiting, diarrhea, chills, body aches, or dysuria. He states that he never uses a dirty needle. Patient denies any medical history. He stated that he was diagnosed with diabetes when he was in residential in 2004 but he has had a 70 lb weight loss since that time and that the diabetes resolved. Patient states that he takes no medications and is only other surgery was for a right knee arthroscopic. Patient states that he smokes out of a pack a day of cigarettes for 40 years has not had a drink in 15 years has a history of math but has not used in several years. Patient's vital signs upon admit temp 97.9?, BP 153/78, HR 80, RR 16, 100% O2 saturation on rm air. Labs WBC 11.8 with a left shift newt# [id number], HGB 12.9, HCT 39.3, sodium 135, creatinine 0.58, RBC 4.38, lactate is negative. Lower leg ultrasound:No DVT in the left lower extremity. Enlarged lymph node in the left groin likely reactive. Discharge Providers Provider Date of admission: 11/02/20 20:16 Discharge Date: 11/04/20 Consults: 11/02/20 20:18 Consult After Hours PICC Line RN Stat Comment: 05/15/21 21:10 Consult to Occupational Therapy Evaluate & Treat Comment: Cellulitis of leg Physician Instructions: Evaluate and treat Consult to Physical Therapy Evaluate & Treat Comment: Lower leg cellulitis Physician Instructions: Evaluate and Treat Discharge provider: Dangelo Turner DO Summary Hospital Course Discharge Diagnosis: 1.Cellulitis Bilateral lower legs, acute, nonpurulent, present on admission as a result of heroin use 2. IV Heroin use 3. Toxic encephalopathy, improved Hospital Course: This is a 54-year-old male with a past medical history of IV heroin use who was admitted with bilateral lower extremity cellulitis. The cellulitis continued to improve with IV antibiotic therapy including ceftriaxone and vancomycin. Although MRSA infection was unlikely given his improvement on this regimen he will be discharged on oral cefdinir and doxycycline for another week. During his hospitalization he became quite somnolent in attempting to avoid heroin withdrawal with methadone, even at a dose of 10 mg twice a day. His encephalopathy improved with cessation of the methadone and on the day of discharge the patient had improved swelling and cellulitis as well as alertness. Over the course of his stay he had a mild leukocytosis which remained fairly stable and he had no overt fever. Patient refused offers for assistance with cessation of his heroin. I do recommend that he establish care with a primary care provider for follow-up as an outpatient. Exam Vital Signs (past 8 hours): - 11/04/20 03:32 11/04/20 06:09 11/04/20 08:35 Temperature 97.5 F L Pulse Rate 62 81 Respiratory Rate 15 20 Blood Pressure 156/97 H Pulse Oximetry 98 100 Oxygen Delivery Method Room Air Oxygen Flow Rate 0 Narrative Exam Narrative: GENERAL APPEARANCE: Disheveled male, slightly somnolent but alert and talkative. SKIN: Left calf erythema has improved, right ankle erythema noted previously has resolved. No significant tenderness or warmth on exam today. LUNGS: Auscultation of the lungs revealed no wheezes, rhonchi, or rales. CARDIOVASCULAR: There was a regular rate and rhythm without any murmurs, gallops, rubs. Peripheral pulses were 2+ and symmetric. ABDOMEN: Soft and nontender with normal bowel sounds. No ascites was noted. MUSCULOSKELETAL: There was no tenderness or effusions noted. Muscle strength and tone were normal. EXTREMITIES: No cyanosis, clubbing or edema. NEUROLOGIC: Alert and oriented. Flat affect and blunted responses. Strength is +5/5 in the Upper Extremities and Lower Extremities Bilaterally. Sensation to touch was normal. Objective Labs Result Diagrams: 11/04/20 04:24 11/04/20 04:24 Labs: Laboratory Results - last 24 hr 11/04/20 11/04/20 04:24 04:24 WBC 11.7 H RBC 4.15 L Hgb 12.4 L Hct 36.2 L MCV 87.4 MCH 29.9 MCHC 34.2 RDW 13.5 Plt Count 248 Neut % (Auto) 70.5 Lymph % (Auto) 16.4 L [place] % (Auto) 10.2 Eos % (Auto) 1.5 L Baso % (Auto) 1.4 Neut # (Auto) 8300 H Lymph # (Auto) 1900 [place] # (Auto) 1200 H Eos # (Auto) 200 Baso # (Auto) 200 H Sodium 134 L Potassium 3.5 Chloride 103 Carbon Dioxide 27 BUN 16 Creatinine 0.55 L Estimated GFR > 60.0 BUN/Creatinine Ratio 29.1 H Glucose 114 H Calcium 8.8 PFSH Medical History Cellulitis and abscess of upper extremity Cellulitis of left lower leg Heroin use disorder, mild, abuse History of methamphetamine abuse IVDU (intravenous drug user) Surgical History (Updated 11/03/20 @ 03:26 by GEORGIA Olivera) History of right knee surgery Family History (Updated 11/03/20 @ 03:27 by GEORGIA Olivera) Mother ALS (amyotrophic lateral sclerosis) Father Alzheimer's dementia Social History household members: significant other Smoking Status: Current every day smoker alcohol intake: former Discharge Plan Discharge Plan Patient Disposition: Home Provider Discharge Comment: You were admitted to the hospital with cellulitis. Please take oral antibiotics for an additional week, do not hesitate to return if you notice worsening of your swelling or redness. Discharge orders & Medications Prescriptions: New cefdinir 300 mg capsule 300 mg PO BID 7 Days Qty: 14 RF: 0 doxycycline hyclate 100 mg tablet 100 mg PO BID 7 Days Qty: 14 RF: 0 Discontinued sulfamethoxazole-trimethoprim [Bactrim DS] 800-160 mg tablet 1 tab PO BID Qty: 20 RF: 0 clindamycin HCl 300 mg capsule 300 mg PO TID Qty: 30 RF: 0 Diet/Activity/Treatments Diet: Diet as Tolerated Activity: As tolerated Visit Report/Discharge Packet Instructions: DI for Cellulitis -- Adult, Getting Treatment for Substance Use Disorder, Doxycycline, Cefdinir Quality VTE Deep Vein Thrombosis/Pulmonary Embolism Present on Admission: No
--- NOTE | 2020-11-04 11:41 | PT-IP ANOTE ---
Attempted to see pt for PT evaluation. Pt was sleeping and did not rouse to voice or tactile stimulation. Will check back later today or tomorrow if pt's LOC improves.
--- NOTE | 2020-11-04 12:03 | PC.NURSE ---
Addendum entered by Roby Orozco R.N. 11/04/20 12:31: pt transferred to independently. [employer] MA[employer]GER escorted pt to exit with all belongings. left room at 1220. Original Note: I'm going to smoke a cigarette. Pt states that he is leaving the floor to smoke a cigarette and he will come back. Educated pt to [facility] tobacco policy. Educated pt that should he leave the room he is doing so against medical advice and he will be discharged from the hospital. Educated pt that I would have to discontinue his IV access prior to his leaving the floor AMA and that in order to come back for treatment he would have to go through the emergency dept. He verbalizes understanding of this but is willing to wait for hospitalist to round to discuss leaving. Notified Dr. Turner who arrived at bedside and assessed pt's cellulitis. Hospitalist states that pt has improved enough to be dc'd home on PO abx. He declines social work consult for substance abuse education/resources. He indicates that he is not interested in receiving any help for his substance abuse at this time. Pt is oriented x4 and answering questions with clear speech when prompted to do so. He does mumble at times and he does not consistently answer questions (suspect poor effort.) Reviewed educational material, disease process, abx, treatment regimen. Educated pt to return for worsening symptoms (increased pain/swelling, fever, etc.). Pt verbalizes understanding. He is able to dress himself. Gathered his belongings and placed in bag. Pt states he has no additional questions at this time. He has a friend that is coming to pick him up.
[2020-11-04 18:09] LABS: HIV 1 & 2 Ab/Ag 4th Gen Combo NEGATIVE (NEGATIVE)
== END 2020-11-04 12:20 | disposition home or self-care (01) | DRG 383 ==
LOC: ED 19:00 → ICU 11-03 13:13 → AC 11-03 13:17 → ICU 11-03 13:17
PROVIDERS: Admitting Provider Nurse Practitioner Family; Emergency Provider Emergency Medicine; Referring Provider Emergency Medicine; Visit Provider Nurse Practitioner Family
DX: L03.116 Cellulitis of left lower limb (principal); L03.115 Cellulitis of right lower limb; F11.10 Opioid abuse, uncomplicated; G92 Toxic encephalopathy; T40.3X5A Adverse effect of methadone, initial encounter; F17.210 Nicotine dependence, cigarettes, uncomplicated; Z20.822 Contact with and (suspected) exposure to COVID-19
CPT/HCPCS: 36415; 36592; 80048; 80053; 81003; 83605; 83735; 84145; 85025; 85379; 85610; 85651; 86140; 87040; 87389; 87635; 87797; 93971; 96365; 96367; 99283; 99284; C9803; J1650; J1885; J2060; J2405